=== PATIENT | female | born 1965 | race Caucasian/White ===

== ENCOUNTER 2018-08-14 14:15 | Observation (INO) | payer MEDICAID ==
[~2018-08-14] VITALS: Ht 167.6 cm; Wt 66.5 kg
--- NOTE | ~2018-08-14 | OP ---
PATIENT NAME: ANGEL CHIN MEDICAL RECORD: [id number] :67 LOCATION:D.M2 D.2119 ADMISSION DATE:08/14/18 SURGEON: DEMIAN GOMEZ MD DATE OF OPERATION: 08/15/2018 PROCEDURE: Left heart catheterization, selective coronary angiography, right radial approach. CATHETERS: Radial sheath, [place] catheter. The procedure was well tolerated. The patient was returned to lewis, sheath removed. TR band was placed. FINDINGS: Left ventriculography in 30-degree HARDIN view: Normal wall motion, normal systolic function. CORONARY ANATOMY: LEFT MAIN: Left main is free of disease. LAD: Free of disease in the diagonal system. CIRCUMFLEX: Free of disease in the marginal system. RIGHT CORONARY ARTERY: Dominant artery, gives rise to PDA, free of disease. IMPRESSION: Normal LV systolic function, normal coronary anatomy. TRANSINT:[id number] Voice Confirmation ID: [id number] DOCUMENT ID: [id number] DEMIAN GOMEZ MD at 0829 CC: [id number] DICTATION DATE: 08/15/18 1203 METAL BASE BLOCKER: 08/15/18 1212 DIS IN 08/15/18 [facility] [address] [place] [address]
--- NOTE | ~2018-08-14 | CN ---
PATIENT NAME:ANGEL CHIN MEDICAL RECORD: [id number] : 67 LOCATION:DKomal D.2119 ADMIT DATE: 08/14/18 ACCOUNT: [id number] CONSULTING PHYSICIAN: DEMIAN GOMEZ MD REFERRING PHYSICIAN: OBDULIA YOUNG MD DATE OF CONSULTATION: 08/15/2018 HISTORY OF PRESENT ILLNESS: A 53-year-old lady with no known history of coronary artery disease, has a history of hyperlipidemia currently not on treatment, history of strong family history of coronary artery disease about a 2-3 week history of marked chest burning and pressure. This is quiet intermittent, initially was not consistent with exertion; however, now has noticed a choking sensation and chest tightness with marked dyspnea with exertion, had rest symptomology yesterday, prompting ER visit. We are asked to see her concerning cardiovascular status. PAST MEDICAL HISTORY: Includes: 1. History of dyslipidemia. 2. Questionable gastroesophageal reflux disease. ALLERGIES: None known. MEDICATIONS: Include fish oil 1000 units daily, Carafate 1 a.c. and q.h.s. SOCIAL HISTORY: , nonsmoker. Previous set exercise program, none currently. Easily takes care of all ADLs. REVIEW OF SYSTEMS: The patient reports easy bruising but reports no swollen glands. The patient reports no fever, no night sweats, no significant weight gain, no significant weight loss. No significant exercise tolerance. The patient reports no dry eyes, no irritation, no vision change. Patient reports no difficulty hearing and no ear pain. Patient reports no frequent nose bleeds or nose and sinus problems. Patient reports on arm pain on exertion. No shortness of breath while lying down. No history of heart murmur. Patient reports no cough, no wheezing or coughing up blood. Patient reports no abdominal pain, no vomiting. Normal appetite. No diarrhea and not vomiting blood. No nausea and no constipation. Patient reports no incontinence. No difficulty urinating. No hematuria. No increased frequency. Patient reports no muscle aches. No weakness, no arthralgias, no back pain. No swelling of the extremities. Patient reports no abnormal mole, no jaundice, no rashes. Reports no loss of consciousness. No weakness and no numbness. No seizures, dizziness, or headaches. The patient reports no depression, no sleep disturbance, feeling safe in a relationship and no alcohol abuse. Patient reports on fatigue. Reports no runny nose or sinus pressure. No itching, no hives, and no frequent sneezing. PHYSICAL EXAMINATION: GENERAL: Pleasant female in no acute distress. VITAL SIGNS: Blood pressure 103/61, pulse 90 and regular. HEENT: Normocephalic and atraumatic. NECK: No bruits noted. HEART: Regular. II/ systolic ejection murmur. LUNGS: Good air excursion. ABDOMEN: Soft, nontender. EXTREMITIES: Pulses are 2+ with no edema. CONSULT REPORT [id number] ANGEL CHIN NEUROLOGIC: Grossly intact. ECG without acute change. IMPRESSION: Accelerated angina. We will plan for angiography. PLAN: Intervention based on above. TRANSINT:[id number] Voice Confirmation ID: [id number] DOCUMENT ID: [id number] DEMIAN GOMEZ MD at 0829 CC: [id number] DICTATION DATE: 08/15/18 1004 SANDER WOODEN PENCILS: 08/15/18 1129 DIS IN 08/15/18 [place] [place] [address]
--- NOTE | ~2018-08-14 | HEMODYNAMI ---
PATIENT:ANGEL CHIN MEDICAL RECORD: [id number] : 67 [facility]D. D.2119 [id number] ADMISSION DATE: 08/14/18 Generatedon:08/15/201811:56 Patient name: ANGEL CHIN Patient #: [id number] SSN: : 1965 Date of study: 08/15/2018 Page: Of Hemodynamic Procedure Report Patient Data Patient Demographics Procedure consent was obtained First Name: ANGEL Gender: Female Last Name: GIUSEPPE : 1965 Middle Initial: GILBERTO Age: 53 year(s) Patient #: [id number] Race: Unknown Additional ID: [id number] Contact details Address: [place] [address] State: [place] City: [place] Zip code: [address] Admission Admission Data Admission Date: 08/14/2018 Admission Time: 15:37 Room #: D.2119 Procedure Procedure Types Cath Procedure Diagnostic Procedure [facility] w/Coronaries Procedure Description Procedure Date Procedure Date: 08/15/2018 Procedure Start Time: 11:49 Procedure End Time: 11:56 Procedure Staff Name Function Antonio Rodriguez MD Performing Physician Andrew Finch RT Monitor Fide Mendoza RT Scrub Meche Terry RN Nurse Philip Morales RN Nurse Procedure Data Cath Procedure Fluoroscopy Diagnostic fluoroscopy Total fluoroscopy Time: 0.8 time: 0.8 min min Diagnostic fluoroscopy Total fluoroscopy dose: 209 dose: 209 mGy mGy Contrast Material Contrast Material Type Amount (ml) Isovue 300 10 Entry Location Entry Primary Successful Side Size Upsize Upsize Entry Closure De La Cruz ccessful Closure Location (Fr) 1 (Fr) 2 (Fr) Remarks Device Remarks Radial Right 6 Fr Mechanical artery Short Compression Estimated blood loss: 10 ml Diagnostic catheters Device Type Used For End Catheter Placement DIAGNOSTIC Braman 110cm 5 Procedure Fr catheter ([id number]) Procedure Complications No complications Procedure Medications Medication Administration Route Dosage Oxygen etCO2 Nasal cannula 2 l/min Lidocaine 2% added to field 20 Heparin Flush Bag added to field 2 bags (1000units/500ml NS) 0.9% NaCl I.V. 100 ml/hr Radial Cocktail I.A. 1 syringe (Verapomil 2mg/Nitro 400mcg/Heparin 1500units) Versed I.V. 2 mg Fentanyl I.V. 100 mcg Hemodynamics Rest Heart Rate: 55 (bpm) Pressure Samples Time Site Value (mmHg) Purpose Heart Use Rate(bpm) 11:51 LV 100/1,7 Snapshot 80 11:51 AO 77/60(66) Pullback 85 11:51 LV 92/7,10 Pullback 85 11:52 AO 89/60(73) Snapshot 84 Gradients Valve Time Site 1 Site 2 Mean SEP/DFP Peak To Heart Use (mmHg) (sec/min) Peak Rate (mmHg) (bpm) Aortic 11:51 LV AO 15 22 15 85 92/7,10 77/60(66) Calculations Valve P-P Mean Valve Index Valve Source Name Gradient Area Flow (cm2) Aortic 15 15 15 15 Snapshots Pre Cath Intra NCS Post Cath Vital Signs Time Heart Resp SPO2 etCO2 NIBP Rhythm Pain Sedation Rate (ipm) (%) (mmHg) (mmHg) Status Level (bpm) 11:38:37 75 15 98 32.3 122/71(98) NSR 0 (11) 10(A) , No pain 11:42:53 88 13 99 37.6 122/69(87) NSR 0 (11) 10(A) , No pain 11:47:09 91 11 99 42.1 107/64(91) NSR 0 (11) 10(A) , No pain 11:51:28 72 11 96 36.1 111/52(99) NSR 0 (11) 10(A) , No pain 11:55:44 88 9 97 42.8 105/60(91) NSR 0 (11) 10(A) , No pain Medications Time Medication Route Dose Verified Delivered Reason Notes Effectiveness by by 11:44:01 Oxygen etCO2 2 l/min Antonio Palacios used for Nasal [facility] caustic mixer cannula 11:44:09 Lidocaine 2% added 20ml Antonio Alvarez for local to vial [facility] anesthetic field MD BARROSO 11:44:15 Heparin Flush added 2 bags Antonio Alvarez used for Bag to [facility] procedure (1000units/500ml field MD BARROSO NS) 11:44:25 0.9% NaCl I.V. 100 Antonio Palacios Per ml/hr St Jeremias Morales RN physician 11:44:33 Radial Cocktail I.A. 1 Antonio Alvarez for (Verapomil syringe St Jeremias Rodriguez vasodilation 2mg/Nitro MD BARROSO 400mcg/Heparin 1500units) 11:49:25 Versed I.V. 2 mg Antonio Alvarez for sedation St Jeremias Rodriguez MD, MD 11:49:32 Fentanyl I.V. 100 mcg Antonio Alvarez for sedation St Jeremias Rodriguez MD, MD Procedure Log Time Note 11:15:14 Andrew Finch RT(R) sent for patient. Start room use. 11:31:15 Time tracking: Regular hours (M-F 7:00 - 5:00) 11:31:20 Plan of Care:Hemodynamics will remain stable., Cardiac rhythm will remain stable., Comfort level will be maintained., Respiratory function will remain adequate., Patient/ family verbilizes understanding of procedure., Procedure tolerated without complication., Recovers from procedure without complications.. 11:32:31 Patient received from [employer] to [facility] Alert and oriented. Tansferred to table in Supine position. 11:32:32 Warm blankets applied, and albin hugger turned on for patient comfort. 11:32:33 Correct patient and procedure confirmed by team. 11:32:34 Signed procedure consent form obtained from patient. 11:32:35 ECG and BP/O2 sat monitors applied to patient. 11:37:25 Vital chart was started 11:37:26 Baseline sample Acquired. 11:37:30 Rhythm: sinus rhythm 11:37:32 Full Disclosure recording started 11:37:38 H&P Date Dictated: 08/15/2018 New H&P dictated by physician.. 11:37:39 Pre-procedure instructions explained to patient. 11:37:40 Pre-op teaching completed and patient verbalized understanding. 11:37:41 Family in waiting room. 11:37:44 Patient NPO since Midnight. 11:37:49 Is the patient allergic to Iodine/contrast media? No. 11:37:50 Was the patient premedicated? No 11:37:51 Is patient on blood thinner?Yes 11:37:55 ACC The patient was administered the following blood thiners within the last 24 hours: ACCPlavix 11:37:59 Patient diabetic? No. 11:38:02 Previous problem with sedation/anesthesia? No ? 11:38:04 Snore? No 11:38:05 Sleep apnea? No 11:38:06 Deviated septum? No 11:38:07 Opens mouth fully? Yes 11:38:08 Sticks out tongue? Yes 11:38:09 Airway obstruction? No ? 11:38:13 Dentures? No ? 11:38:17 Pre procedure: right dorsailis pedis pulse 1+ Palpable, but thready & weak; easily obliterated 11:38:19 Pre procedure: left dorsailis pedis pulse 1+ Palpable, but thready & weak; easily obliterated 11:38:22 Modified Brendan's test Radial < 7 seconds 11:38:24 Patient pain scale 0/10 ?. 11:38:30 IV patent on arrival in left forearm with 0.9% NaCl at [facility]. 11:38:33 Lab results completed and on chart. 11:38:37 Right Radial & Right Groin area was prepped with chlora-prep and draped in sterile fashion 11:38:38 Alarms reviewed by R. N. 11:38:38 Sharps counted by scrub and verified by R.N. 11:41:30 Patient not . Patient has had tubal. 11:41:42 --------ALL STOP TIME OUT------ 11:41:42 Final Timeout: patient, procedure, and site verified with staff and physician. All members of the team are in agreement. 11:41:44 Right Radial & Right Groin site verified by team. 11:41:47 Physical assessment completed. ASA score P 2 - A patient with mild systemic disease as per Antonio Rodriguez MD. 11:41:51 Sedation plan: IV Moderate Sedation Medication:Versed, Fentanyl 11:44:01 Oxygen 2 l/min etCO2 Nasal cannula was administered by Philip Morales RN; used for procedure; 11:44:09 Lidocaine 2% 20ml vial added to field was administered by Antonio Rodriguez MD; for local anesthetic; 11:44:15 Heparin Flush Bag (1000units/500ml NS) 2 bags added to field was administered by Antonio Rodriguez MD; used for procedure; 11:44:25 0.9% NaCl 100 ml/hr I.V. was administered by Philip Morales RN; Per physician; 11:44:33 Radial Cocktail (Verapomil 2mg/Nitro 400mcg/Heparin 1500units) 1 syringe I.A. was administered by Antonio Rodriguez MD; for vasodilation; 11:49:03 Procedure started. 11:49:08 Local anesthetic to right radial artery with Lidocaine 2% by Antonio Rodriguez MD.INITIAL ACCESS ONLY 11:49:21 Use device set Radial Dx or PCI 11:49:23 Tegaderm 4 x 4 (1626W) opened to sterile field. 11:49:24 ACIST Manifold (31422) opened to sterile field. 11:49:25 Versed 2 mg I.V. was administered by Antonio Rodriguez MD; for sedation; 11:49:25 ACIST Hand Control (79322) opened to sterile field. 11:49:26 ACIST Syringe (94452) opened to sterile field. 11:49:26 Medline Cath Pack ([id number]) opened to sterile field. 11:49:27 Bag Decanter (2002S) opened to sterile field. 11:49:27 DIAGNOSTIC WIRE .035 260cm J wire (133914) opened to sterile field. 11:49:28 MBrace Wrist Support ([id number]) opened to sterile field. 11:49:30 SHEATH 6Fr Prelude Radial ([id number]) opened to sterile field. 11:49:32 Fentanyl 100 mcg I.V. was administered by Antonio Rodriguez MD; for sedation; 11:49:44 A 6 Fr Short sheath was inserted into the Right Radial artery 11:49:51 A DIAGNOSTIC Braman 110cm 5 Fr catheter (383003) was advanced over the wire and used for Procedure. 11:50:38 Zero performed for pressure channel P1 11:50:41 Zero performed for pressure channel P1 11:51:26 LV angiography performed. 11:51:27 LV gram done using HARDIN 11:51:38 EF : 55 % 11:51:42 LV hemodynamics recorded. 11:51:45 Injector settings: Ml/sec: 7, Volume: 15, 11:52:24 LCA angiography performed. 11:53:19 RCA angiography performed. 11:53:20 Catheter removed. 11:53:22 TR BAND Standard ([id number]) opened to sterile field. 11:53:55 Sheath removed intact; hemostasis achieved with Mechanical Compression to the Right Radial artery. 11:53:57 Procedure ended.(Physican Out) 11:54:07 Fluoroscopy time 00.80 minutes. 11:54:11 Fluoroscopy dose: 209 mGy 11:54:11 Flurop Dose total: 209 11:54:15 Contrast amount:Isovue 300 10ml. 11:54:18 Sharps counted by scrub and verified by R.N. 11:54:19 Insertion/operative site no bleeding no hematoma. 11:54:21 TR band inflated with 12cc of air. 11:54:23 Post Procedure Pulses reassessed and unchanged 11:54:27 Post-procedure physical assessment completed. ASA score P 2 - A patient with mild systemic disease as per Antonio Rodriguez MD. 11:54:30 Post procedure rhythm: unchanged. 11:54:33 Estimated blood loss: 10 ml 11:54:35 Post procedure instruction explained to patient.Patient verbalizes understanding. 11:54:36 Patient needs reinforcement of post procedure teaching. 11:54:44 Procedure and supply charges have been captured, reviewed, submitted and are correct. 11:54:47 Procedure Complication : No complications 11:55:55 Vital chart was stopped 11:55:55 See physician's report for complete and final results. 11:55:57 Report given to PCU. 11:56:00 Patient transfered to PCU with Bed. 11:56:03 Procedure ended. 11:56:03 Full Disclosure recording stopped 11:56:07 End room use (Document Last) Device Usage Item Name Manufacture Quantity Catalog Number Hospital Part Current M inimal Lot# / Charge Number Stock Stock Serial# Code Tegaderm 4 x 4 3M 1 [id number] [id number] [id number] 5 (1626W) ACIST Manifold Acist 1 55649 916957 867168 662110 5 (14707) [employer] ACIST Hand Acist 1 83109 691170 018805 246272 5 Control (83328) [employer] ACIST Syringe Acist 1 48977 997314 622457 979391 2 0 (89738) [employer] Medline Cath Cardinal 1 [id number] 291486 55802 767455 5 [employer]Tap [facility] ([id number]) Bag Decanter Microtek 1 906811 78460 500160 5 (2002S) Medical Inc. DIAGNOSTIC WIRE St Clem 1 880848 126068 552129 971234 3 0 .035 260cm J wire (502471) MBrace Wrist Advanced 1 140-0250-00 904942 55415 580000 5 Support Vascular ([id number]) Dynamics SHEATH 6Fr Merit 1 [id number] 930396 072074 196581 5 Prelude Radial Medical ([id number]) DIAGNOSTIC Terumo 1 40-9255 879132 833356 113212 5 Braman 110cm 5 Fr catheter (685674) TR BAND Terumo 1 [id number] 880996 892571 551997 4 0 Standard ([id number]) Signature Audit [place] Stage Time Signature Unsigned Intra-Procedure 08/15/2018 Andrew Finch 11:56:48 AM RT(R) Signatures Monitor : Andrew Finch RT Signature : Date : Time : [place] [address] [facility] [place] [address]
[2018-08-14 14:45] VITALS: BP 149/74
[2018-08-14 14:52] LABS: BASOPHILS 0.4 % (0-2); EOSINOPHILS 0.5 % (0-7); HEMATOCRIT 38.9 % (36.0-48.0); HEMOGLOBIN 12.8 g/dL (12-16); IMMATURE GRANULOCYTES 0.1 % (0-5); LYMPHOCYTES 32.5 % (15-50); MCH 29.2 pg (26.0-34.0); MCHC 32.9 g/dL (31.0-37.0); MCV 88.8 fL (80.0-100.0); MEAN PLATELET VOLUME 10.1 fL (7.4-10.4); MONOCYTES 6.4 % (2-11); NEUTROPHILS 60.1 % (40-80); PLATELET COUNT 254 10x3/uL (130-400); RBC 4.38 10x6/uL (4.00-5.40); WBC 7.9 10x3/uL (4.8-10.8)
[2018-08-14 15:00] VITALS: BP 140/76
[2018-08-14 15:10] LABS: ALKALINE PHOSPHATASE 66 U/L (46-116); ALT (SGPT) 22 U/L (10-68); BILIRUBIN - TOTAL 0.26 mg/dL (0.2-1.3); CALC OSMOLALITY 281 mosm/kg (275-300); CALCIUM 9.3 mg/dL (8.5-10.1); CARBON DIOXIDE 26.5 mmol/L (21.0-32.0); CHLORIDE - SERUM 106 mmol/L (98-107); CREATININE - SERUM 0.9 mg/dL (0.6-1.3); GLUCOSE 98 mg/dL (74-106); POTASSIUM - SERUM 4.2 mmol/L (3.5-5.1); PROTEIN - SERUM 7.3 g/dL (6.4-8.2); SODIUM 142 mmol/L (136-145); UREA NITROGEN 10 mg/dL (7-18); eGFR NON AFRICAN AMERICAN 70 mL/min (90-120)
[2018-08-14 15:20] LABS: CKMB 0.7 U/L (0.0-3.6); CREATINE KINASE 138 UL (21-215)
[2018-08-14 15:23] LABS: TROPONIN-I < 0.017 ng/mL (0.000-0.060)
[2018-08-14 15:30] VITALS: BP 131/85
[2018-08-14 16:54] VITALS: BP 133/77
[2018-08-14 17:13] VITALS: Ht 167.6 cm; Wt 66.5 kg
[2018-08-14] MEDS ORDERED: CARAFATE1 G/10 ML PO (17:25)
[2018-08-14] MEDS ORDERED: ROBAXIN500 MG PO (17:27)
[2018-08-14] MEDS ORDERED: FISH OIL 1,0001 CA1 PO (17:28)
[2018-08-14 18:46] LABS: CKMB 0.5 U/L (0.0-3.6); CREATINE KINASE 127 UL (21-215); TROPONIN-I < 0.017 ng/mL (0.000-0.060)
[2018-08-14 20:00] VITALS: BP 99/55
[2018-08-15] VITALS: BP 83/44
[2018-08-15 01:34] LABS: CKMB 0.5 U/L (0.0-3.6); CREATINE KINASE 104 UL (21-215); TROPONIN-I < 0.017 ng/mL (0.000-0.060)
[2018-08-15 04:00] VITALS: BP 98/49
[2018-08-15 05:40] LABS: CHOL - HDL RATIO 4.6 ratio (2.3-4.1)
[2018-08-15 08:04] VITALS: BP 103/61
[2018-08-15 09:38] LABS: BASOPHILS 0.7 % (0-2); EOSINOPHILS 1.7 % (0-7); HEMATOCRIT 36.4 % (36.0-48.0); HEMOGLOBIN 11.9 g/dL (12-16); IMMATURE GRANULOCYTES 0.1 % (0-5); LYMPHOCYTES 30.6 % (15-50); MCH 29.6 pg (26.0-34.0); MCHC 32.7 g/dL (31.0-37.0); MCV 90.5 fL (80.0-100.0); MEAN PLATELET VOLUME 10.6 fL (7.4-10.4); MONOCYTES 6.6 % (2-11); NEUTROPHILS 60.3 % (40-80); PLATELET COUNT 239 10x3/uL (130-400); RBC 4.02 10x6/uL (4.00-5.40); WBC 9.1 10x3/uL (4.8-10.8)
[2018-08-15 10:09] LABS: ANION GAP 16.7 mmol/L (8-16); CALCIUM 8.7 mg/dL (8.5-10.1); CARBON DIOXIDE 22.7 mmol/L (21.0-32.0); CREATININE - SERUM 1.1 mg/dL (0.6-1.3); POTASSIUM - SERUM 4.4 mmol/L (3.5-5.1)
[2018-08-15 11:01] VITALS: BP 118/64
== END 2018-08-15 16:16 | disposition home or self-care (01) ==
LOC: D.ER 14:15 → D.M2 15:37 → OBSVTIME 15:37 → D.M2 08-15 16:16
PROVIDERS: Emergency Medicine; Internal Medicine Interventional Cardiology
DX: R07.9 Chest pain, unspecified (principal); K21.9 Gastro-esophageal reflux disease without esophagitis; Z87.891 Personal history of nicotine dependence

== ENCOUNTER → 2018-12-03 09:09 | Outpatient (CLI) | payer MEDICAID ==
[2018-08-14 17:13] VITALS: BMI 23.4
[~2018-12-03 09:09] MED LIST: CARAFATE1 G/10 ML PO; FISH OIL 1,0001 CA1 PO; ROBAXIN500 MG PO
== END | disposition home or self-care (01) ==
LOC: D.NM 09:00
DX: R14.0 Abdominal distension (gaseous) (principal); R11.2 Nausea with vomiting, unspecified

== ENCOUNTER → 2018-12-20 10:46 | Outpatient (CLI) | payer MEDICAID ==
[2018-08-14 17:13] VITALS: BMI 23.4
== END | disposition home or self-care (01) ==
LOC: D.NM 10:46
DX: R14.0 Abdominal distension (gaseous) (principal); R11.2 Nausea with vomiting, unspecified